=== PATIENT | male | born 1980 | race Two or more races ===

== ENCOUNTER 2024-05-21 22:49 | Emergency (ER) | payer SELFPAY ==
[2024-05-21 22:50] VITALS: BMI 28.3
--- NOTE | 2024-05-21 23:10 | XR_ITS ---
Examination: Tibia-Fibula, left , 2 views Technique: Tibia-fibula AP lateral 2 views Date and time of exam: May 21, 2024 1144 hrs. Indications: Patient fell today with injury to the lower leg, lower leg pain. Findings: Acute comminuted fractures distal tibia, offset of the main fracture fragments at 2 10 mm Fracture line extends into the more distal tibia without displacement Acute comminuted displaced fractures distal fibular shaft one half shaft width No ankle dislocation Impression: Acute comminuted fractures distal tibia and distal fibula
--- NOTE | 2024-05-21 23:27 | PD.EDRME ---
Rapid Medical Screening Exam RME Arrival date/time: 05/21/24 22:49 43M with no significant PMH presents to ED with LLE deformity/pain after alleged trip and fall. Chief Complaint: Extremity Injury, Lower
[2024-05-21 23:39] VITALS: BP 136/77; PULSE 89; RESP 18; TEMP 36.6; O2SAT 100
--- NOTE | 2024-05-22 00:03 | XR_ITS ---
Examination: Foot, left, 3 views Technique: AP, oblique, lateral views foot, 3 views Date and time of exam: May 22, 2024 1243 hrs. Indications: Patient fell today with injury to the foot, foot pain Findings: No acute fracture No foreign body No cortical bone obstruction Impression: No acute foot fracture Please see the ankle report
--- NOTE | 2024-05-22 00:03 | XR_ITS ---
EXAMINATION: Ankle, left 3 views . Technique: Ankle AP, oblique, lateral 3 views Date and time of exam: Or 24 0043 hrs. Indications: Patient fell today with injury to the ankle, ankle pain. Findings: Acute comminuted fracture distal tibial shaft, 11 mm offset of the main fracture fragments Fracture line extends through the distal tibia also without displacement Comminuted fractures distal fibular shaft in addition No ankle dislocation Impression: Acute comminuted displaced fractures distal tibial and fibular shafts
[2024-05-22 00:10] LABS: Basophils # (Auto) 0.1 Thou/mm3 (0.0-0.2); Basophils % (Auto) 1 % (0-2.5); Eosinophils # (Auto) 0.1 Thou/mm3 (0.0-0.5); Eosinophils % (Auto) 1 % (0-10); Hematocrit 42.3 % (41.0-53.0); Hemoglobin 14.3 g/dL (13.5-16.0); Immature Granulocytes % (Auto) 1 % (0-0); Immature Granulocytes Auto 0.04 Thou/mm3 (0.00-0.00); Lymphocytes # (Auto) 2.9 Thou/mm3 (1.0-4.8); Lymphocytes % (Auto) 38 % (10-50); Mean Corpuscular HGB Conc 33.8 g/dl (31.0-37.0); Mean Corpuscular Hemoglobin 29.7 pg (25.0-35.0); Mean Corpuscular Volume 88 fL (80-100); Monocytes # (Auto) 0.5 Thou/mm3 (0.0-0.8); Monocytes % (Auto) 6 % (0-12); Neutrophils # (Auto) 4.1 Thou/mm3 (1.8-7.7); Neutrophils % (Auto) 54 % (37-80); Nucleated Red Blood Cell % 0 /100 WBC (0); Platelet Count 263 Thou/mm3 (140-440); RDW Standard Deviation 39.3 fL (35.1-43.9); Red Blood Count 4.81 Miln/mm3 (4.50-5.90); White Blood Count 7.6 Thou/mm3 (3.8-10.6)
[2024-05-22 00:25] LABS: Partial Thromboplastin Time 22.8 Seconds (22.0-36.0); Prothrombin Time 10.6 Seconds (9.0-12.2)
[2024-05-22 00:27] LABS: Alanine Aminotransferase 36 U/L (10-49); Albumin/Globulin Ratio 1.6 (1.2-2.2); Alcohol, Blood Medical 165.8 mg/dL (0-10.0); Alkaline Phosphatase 81 U/L (46-116); Anion Gap 10 (7-16); Aspartate Amino Transferase 30 U/L (0-34); BUN/Creatinine Ratio 17 Ratio (12-20); Bilirubin,Total 0.6 mg/dL (0.3-1.2); Blood Urea Nitrogen 19 mg/dL (9-23); Carbon Dioxide 23.5 mMol/L (20.0-31.0); Chloride 106 mMol/L (98-107); Creatinine (Component) 1.1 mg/dL (0.6-1.3); Globulin 3.1 gm/dL (2.3-3.5); Glucose 110 mg/dL (74-106); Osmolality,Calculated 280 (275-295); Potassium 3.4 mMol/L (3.4-5.1); Sodium 139 mMol/L (136-145); Total Protein 8.1 gm/dL (5.7-8.2); eGFR > 60 See Note
[2024-05-22] MEDS: KETOROLAC INJ 30 MG/ML VIAL IVP (01:32)
--- NOTE | 2024-05-22 01:34 | PD.EDLOWEX ---
Lower Extremity Injury RME/HPI General Chief Complaint: Extremity Injury, Lower Stated Complaint: L LEG PAIN S/P FALL 20 MINS AGO Time Seen by Provider: 05/21/24 23:48 Arrival date/time: 05/21/24 22:49 RME / HPI RME / HPI Narrative: 05/21/24 22:49 43M with no significant PMH presents to ED with LLE deformity/pain after alleged trip and fall. This section includes all my notes and documentations, including HPI, PE, and ED course. Winston Christian MD HPI: 43-year-old male here to be evaluated after a fall just prior to arrival. He admits to being intoxicated. He was urinating and lost his balance and fell. Uncertain about the details because it happened so fast. No head injury. But he couldn't get up due to severe pain in the left ankle area. No loss of consciousness. No other pain. Can move and feel the toes normally. No other complaints. ROS: Musculoskeletal: negative except as documented in HPI. Skin: negative except as documented in HPI. Neurological: negative except as documented in HPI. Physical Exam: General:? Alert and oriented.? No acute distress when remaining still. Eyes:? Conjunctivae and lids clear.? EOMI.? PERRL. ENT:? No signs of head injury. Neck:? Supple.? No tenderness. Heart:? RRR.? Lungs:? No respiratory distress.? Good air movement.? No rhonchi, wheezing, rales.?? Chest:? No tenderness. Abdomen:? Soft and nontender.? Normal bowel sounds.? No distension.? No rebound or guarding.?? Back:? No tenderness.?? Skin:? Warm and dry.?? Neuro:? Alert and oriented X 3.? Cranial Nerves II-XII grossly intact.? No peripheral motor deficits. Musculoskeletal: Remarkable for severe tenderness and equivocal deformity in the distal left lower leg. All other major joints and bones are not tender with no limited ROM. I reviewed all diagnostic test results. My review of the left lower extremity x-rays is fracture of the distal fibula and tibia. Blood tests unremarkable. At this point, diagnoses include left lower leg fracture. Treatment here included left leg splint and crutches. Recommended more care with orthopedic surgeon. Based on my best medical judgment, made decision no further evaluation or treatment indicated at this time. Patient understands and agrees to the discharge instructions customized and printed, see below. Discharge instructions from Dr. Christian: 1. Unfortunately, you broke your left lower leg close to the ankle. 2. Keep the splint clean and dry and intact until cleared by a doctor taking care of you. 3. No weightbearing using the crutches. 4. Elevate above the waist level for 3 days is much as possible. 5. Ibuprofen 800 mg every 6-8 hours today and tomorrow to decrease inflammation then as needed. Tylenol with codeine for severe pain. 6. See Dr. Elvis Charlton (our orthopedic surgeon) or another orthopedic surgeon of your choice on 05/24/2024 for further care, including planning for surgery. Call the office and let them know that Dr. Charlton was on-call and you were seen in the ER, and they will give you an appointment. Address; [address] [place] [address] [address], [place] [address] Phone:? 7. Seek immediate medical care with intolerable pain, if he can't move your toes, your toes turn cold and blue, or with any concerns. Winston Christian MD Related Data Previous Rx's ?Medication ?Instructions ?Recorded acetaminophen 300 mg-codeine 30 mg 2 tab PO TID PRN pain #20 tabs 05/22/24 tablet ibuprofen 800 mg tablet 800 mg PO Q8H PRN pain #30 tabs 05/22/24 Allergies Allergy/AdvReac Type Severity Reaction Status Date / Time No Known Allergies Allergy Verified 05/21/24 22:52 Course Quality Measures none Orders Category Date Time Status Crutches .NOW Care 05/22/24 01:28 Active Splint / Immobilizer STAT Care 05/22/24 00:07 Active Splint / Immobilizer STAT Care 05/22/24 00:11 Active XR ankle comp LT min 3V Stat Exams 05/22/24 00:03 Taken XR foot comp LT min 3V Stat Exams 05/22/24 00:03 Taken XR tibia fibula LT 2V Stat Exams 05/21/24 23:10 Completed Alcohol, Blood Medical Stat Lab 05/21/24 23:25 Completed CBC Stat Lab 05/21/24 23:25 Completed CMP [Comprehensive Metabolic Panel] Stat Lab 05/21/24 23:25 Completed Drug Screen,Urine Stat Lab 05/21/24 23:25 Ordered INR [Prothrombin Time with INR] Stat Lab 05/21/24 23:25 Completed PTT [Partial Thromboplastin Time] Stat Lab 05/21/24 23:25 Completed Ketorolac Inj [Toradol Inj] Med 05/22/24 00:03 Discontinued 30 mg IVP X1 ONE Vital Signs Vital signs: Vital Signs Temperature 98 F 05/21/24 23:39 Pulse Rate 89 05/21/24 23:39 Respiratory Rate 18 05/21/24 23:39 Blood Pressure 136/77 H 05/21/24 23:39 Pulse Oximetry (%) 100 05/21/24 23:39 Oxygen Delivery Method Room Air 05/21/24 23:39 Extremity Injury, Lower Patient data External records reviewed:: None Clinical information provided by:: patient Social determinants that could affect healthcare access:: alcohol use Patient has the following chronic illnesses:: None How is presenting disease/condition affected by chronic disease/condition?: no chronic disease Evaluation data The following diagnostics were reviewed and interpreted by me:: lab results and radiology exam(s) Lab and/or radiology exams considered but not ordered:: None Interpretation Summary: Left lower extremity fracture Medications / Prescriptions Medications or Prescriptions considered but not ordered:: None Medication administrations:: Medication Administration History Discontinued Medications Ketorolac Tromethamine (Ketorolac Inj 30 Mg/Ml Vial) 30 mg IVP X1 ONE Stop: 05/22/24 00:04 Last Admin: 05/22/24 01:32 Dose: 30 mg Documented By: DB See charting Consultations Consultation(s) initiated? (list below): No Diagnosis Most likely diagnosis given after review of the tests above:: Left lower extremity fracture Admission Indicated Admission indicated?: not indicated Admission Request Was there a request for admission?: No Disposition Plan Disposition Plan: Discharge Discharge Attestation Discharge Attestation: The patient and all family members were given an opportunity to ask questions and understood the discharge instructions. Discharge instructions specifically effects, indications for sooner follow up or return to the emergency department, and the expected course of current diagnosis. Patient condition: Stable Discharge Plan Plan Patient Disposition: HOME (Self Care) Prescriptions/Referrals Prescriptions/Med Rec: New acetaminophen-codeine 300-30 mg tablet 2 tab PO TID MDD 6 PRN (Reason: pain) Qty: 20 0RF ibuprofen 800 mg tablet 800 mg PO Q8H PRN (Reason: pain) Qty: 30 0RF Referrals: No Primary/Family,Physician [Primary Care Provider] - In 1 week Problem List Clinical Impression: Fracture of left lower extremity Patient/Caregiver Discharge Instructions Education Materials: ED Fracture, Lower Extremity Additional Instructions: Discharge instructions from Dr. Christian: 1. Unfortunately, you broke your left lower leg close to the ankle. 2. Keep the splint clean and dry and intact until cleared by a doctor taking care of you. 3. No weightbearing using the crutches. 4. Elevate above the waist level for 3 days is much as possible. 5. Ibuprofen 800 mg every 6-8 hours today and tomorrow to decrease inflammation then as needed. Tylenol with codeine for severe pain. 6. See Dr. Elvis Charlton (our orthopedic surgeon) or another orthopedic surgeon of your choice on 05/24/2024 for further care, including planning for surgery. Call the office and let them know that Dr. Charlton was on-call and you were seen in the ER, and they will give you an appointment. Address; [address] [place] [address] [address], [place] [address] Phone:? 7. Seek immediate medical care with intolerable pain, if he can't move your toes, your toes turn cold and blue, or with any concerns. Print Language: Emirati Stand Alone Forms: [employer] Award Info., Patient Portal Info Letter
[2024-05-22 02:38] VITALS: BP 129/66; PULSE 68; RESP 16; TEMP 36.7; O2SAT 100
== END 2024-05-22 02:38 | disposition home or self-care (01) ==
PROVIDERS: Physician Assistant; Emergency Provider Emergency Medicine
DX: S82.252A Displaced comminuted fracture of shaft of left tibia, initial encounter for closed fracture (principal); S82.832A Other fracture of upper and lower end of left fibula, initial encounter for closed fracture; W01.0XXA Fall on same level from slipping, tripping and stumbling without subsequent striking against object, initial encounter
CPT/HCPCS: 29515; 36415; 73590; 73610; 73630; 80053; 80307; 80320; 85025; 85610; 85730; 96374; 99284; J1885; G0480